=== PATIENT | female | born 1955 | race African-American/Black ===

== ENCOUNTER 2017-03-25 18:24 | Inpatient (IN) | payer MEDICARE, OTHER ==
[~2017-03-25] VITALS: Ht 154.9 cm; Wt 99.8 kg
--- NOTE | ~2017-03-25 | ST ---
Unit #: [id number] #: [id number] Patient: VAUGHN KIM [id number] [address] [place], [place] [address] [id number] I MR#: [id number] NAME: VAUGHN KIM : 1955 SEX: F STUDY DATE/TIME: 03/29/2017 UNIT: C2A ROOM: 225 STUDY DESCRIPTION: Stress test Attending Physician: Heron Ahmuada M.D. Primary Care Physician: Alverto HowePKailaRJose Rafael CARDIOLOGY REPORT PROCEDURES PERFORMED Stress test. REASON FOR TEST Pre-op cardiac clearance. PROCEDURE Baseline EKG shows normal sinus rhythm, rate of 90 beats per minute. Per protocol, 0.4 mg of Lexiscan was injected, followed by Cardiolite. During the infusion, the patient did complain of headache and shortness of breath but denied any complaints of chest pain. These symptoms resolved in the recovery period. There were no ST segment changes noted suggestive of ischemia. There was no ectopy. The patient's blood pressure did increase to as high as 202/102 during the infusion with last blood pressure running 188/85. Please correlate with nuclear images. Dictated by... Lo Hill.P.RJose Rafael for Josiane Woods M.D. LMW/db TD: 03/29/2017 10:28 JOB #: [id number] CARDIOLOGY REPORT Page 1 of 1 X Ana Espitia APRN CARDIOLOGY REPORT
--- NOTE | ~2017-03-25 | BMI ---
[facility] Nutrition Therapy DATE: 03/26/17 Patient: VAUGHN KIM Physician: KHADRA Address: [address] [facility] Room/Bed: [address] [place] [address], Zip: [place] [address] Admit Date: 03/26/17 Date of : [birth year] Height: 5 1 Weight: 220 99.79 HIGH BMI NOTE: DX: 62 Y.O. FEMALE ADMITTED FOR GANGRENE (R) 5TH TOE ANTHROPOMETRICS: 5'1", WT: 219# (100 KG), 41.4 DIET: CONSISTENT CARBOHYDRATE RECOMMENDATIONS: 1. RECOMMEND TO ADD HEALTHY HEART TO CURRENT DIET ORDER ABOVE TO PROMOTE GRADUAL WEIGHT LOSS TOWARDS HEALTHY BMI (19.0-25.0) OR +/-10% IBW RD WILL F/U PER PROTOCOL Respectfully, JOSE AGUILAR MS, RD, LD Food and Nutritional Services [facility] cc: client file
--- NOTE | ~2017-03-25 | CO ---
Unit #: [id number] #: [id number] Patient: VAUGHN DIALLO [id number] [address] [address] [id number] I MR#: [id number] NAME: VAUGHN DIALLO ROOM: 225 Age: 62 Sex: F Admission Date: 03/26/2017 : 1955 Attending Physician: Kike Brandt M.D. Primary Care Physician: Tanner Rodney A.P.R.N. Consultation Date: 03/27/2017 CONSULTATION REPORT CHIEF COMPLAINT Gangrene right fifth toe. HISTORY OF PRESENT ILLNESS Ms. Diallo is a 62-year-old female with a longstanding history of nearly 30 years of diabetes mellitus. She states that over the past two weeks she has developed necrotic changes over the fifth toe. She had seen her hog man who had performed some sort of local I and D and started her on clindamycin. Over the past week, she has had increasing pain in the fifth toe with progressive and chronic changes. She has now developed fever and chills at home with some night sweats. She presented to the emergency room for further evaluation. She was admitted with gangrene of the right fifth toe. She has received IV antibiotics. An Orthopedic consultation has been requested regarding further definitive management. PAST MEDICAL HISTORY 1. Diabetes mellitus. 2. Hypertension. 3. Hyperlipidemia. MEDICATIONS 1. NovoLog. 2. Metformin. 3. Losartan. 4. Lipitor. 5. Aldactone. 6. Hydralazine. 7. Norvasc. 8. Clonidine. 9. Glipizide. ALLERGIES No known drug allergies. FAMILY HISTORY Renal insufficiency, hypertension, and diabetes. SOCIAL HISTORY The patient lives with her son and grandson. She smokes one-half to one pack of cigarettes daily. She has no alcohol use. REVIEW OF SYSTEMS Ten systems are reviewed and negative except as noted in the HPI. Unit #: [id number] #: [id number] Patient: VAUGHN DIALLO PHYSICAL EXAMINATION GENERAL APPEARANCE: Obese female in no acute distress or discomfort. PSYCHIATRIC: Awake, alert, and oriented to person, place, time, and situation, with normal range of mood and affect. HEENT: Normocephalic and atraumatic cranium. Pupils equal, round, and reactive to light. CARDIAC: Regular rate and rhythm. PULMONARY: No increased work of breathing. Symmetric chest rise. ABDOMEN: Obese and nondistended. NEUROLOGIC: Decreased sensation with diabetic neuropathy in the feet and hands. VASCULAR: She has absent pedal pulses to palpation. Her feet are warm with intact capillary refill. LYMPHATICS: No lymphedema or palpable lymphadenopathy. SKIN: There is no overlying cellulitis or induration. She has gangrenous changes at the tip of the fifth toe, as well as a small ulcerated area status post an I and D around the fifth metatarsal head laterally. MUSCULOSKELETAL: She has painless range of motion of the right ankle. She has normal plantigrade foot. DIAGNOSTIC STUDIES LABORATORY: White blood cell count is 15.9 which is up from 15.4 on admission, hemoglobin is 11.6, and platelet count is 149,000. She has 85% neutrophils. Sedimentation rate is elevated at 45. CRP is less than 0.5. IMAGING: (1) Plain x-rays of the right foot are reviewed. These demonstrate no radiographic signs of osteomyelitis. No gas is seen in the soft tissues. (2) ABIs are reviewed of the bilateral lower extremities. These demonstrate ABIs of approximately 0.3 bilaterally. IMPRESSION A 62-year-old female with chronic diabetes mellitus and peripheral vascular disease, now with right foot dry gangrene and possible underlying osteomyelitis. PLAN Will obtain an MRI with and without contrast to evaluate for the presence or extent of osteomyelitis, and we will consult Vascular surgery for further evaluation. She will need an amputation of this toe at least at some point in the future. Her current blood flow is insufficient for an amputation at this level I suspect. Further disposition will be pending workup and evaluation by Vascular Surgery. Dictated by... Cory Jennings M.D. LARISSA/robby TD: 03/28/2017 14:11 JOB #: [id number] Unit #: [id number] #: [id number] Patient: VAUGHN DIALLO CONSULTATION REPORT Page 1 of 1 X Cory Jennings MD CONSULTATION REPORT
--- NOTE | ~2017-03-25 | TH ---
Unit #: [id number] #: [id number] Patient: VAUGHN KIM [id number] [address] [address] [id number] I MR#: [id number] NAME: VAUGHN KIM : 1955 SEX: F STUDY DATE/TIME: 03/29/2017 UNIT: C2A ROOM: 225 STUDY DESCRIPTION: Attending Physician: Heron Ahumada M.D. Primary Care Physician: Tanner Rodney A.P.R.N. CARDIOLOGY REPORT EXAM Lexiscan Cardiolite stress test, nuclear portion. PROCEDURE Using technetium 99m labeled Cardiolite, rest and stress SPECT images were obtained. Multiple SPECT images were obtained in various views including horizontal and vertical long axis and short axis views of the left ventricle. Images were obtained by gated SPECT method. The patient was administered 10.69 mCi of Cardiolite at rest. The patient was administered 33.7 mCi of Cardiolite after Lexiscan infusion was completed. On the stress images, there is normal perfusion noted. The rest images showed normal perfusion. Comparing rest and stress images, there is no stress-induced ischemia noted. The left ventricular ejection fraction is calculated to be 72%. There is no focal wall motion abnormality seen. CONCLUSION 1. No stress-induced ischemia noted. 2. The left ventricular ejection fraction is calculated to be 72%. 3. There is no focal wall motion abnormality. 4. Normal Lexiscan Cardiolite stress test. Dictated by... Ana Chris TD: 03/29/2017 16:56 JOB #: [id number] CARDIOLOGY REPORT Page 1 of 1 X Josiane Woods MD <ELECTRONICALLY SIGNED> 04/22/17 1524 CARDIOLOGY REPORT
--- NOTE | ~2017-03-25 | CO ---
Unit #: [id number] #: [id number] Patient: TAMEKA DIALLO [id number] [address] [place], [place] [address] [id number] I MR#: [id number] NAME: TAMEKA DIALLO ROOM: 225 Age: 62 Sex: F Admission Date: 03/26/2017 : 1955 Attending Physician: Heron Ahumada M.D. Primary Care Physician: Tanner Rodney A.P.R.N. Consultation Date: 03/27/2017 CONSULTATION REPORT REFERRING PROVIDERS 1. Narda Lane M.D. 2. Cory Jennings M.D. REASON FOR CONSULTATION Peripheral arterial disease, gangrene right fifth toe. HISTORY The patient is a 62-year-old female with significant diabetes, hypertension, hypercholesterolemia who was admitted to the hospital with worsening ischemic changes to the right fifth toe. She reports two to three weeks ago she had a toenail clipping and then stubbed her toe and has had persistent issues with her toe and it is now turning a darker black color. She had further procedure by her communication skills instructor, but it has not healed. Upon admission to the emergency room, she was found to have no fevers or chills but she had complained of it prior to her admission. She reports no drainage. She reports no smell from the wound. She has reported that over the last few years she has had increasing lots of discomfort with walking longer distances. She can walk roughly 25 feet before she begins to have pain in her thighs and hips as a cramping pain. It does not radiate to her back. It is an 8/10 in severity, made better by rest but made worse by continued walking. She reports no wounds prior to this. She reports no rest pain. She does sleep fitfully at times. She has been compliant with her medications for her diabetes and her hypercholesterolemia. She reports no chest pain. She reports no focal unilateral neurologic changes. PAST MEDICAL HISTORY 1. Diabetes mellitus. 2. Hypertension. 3. Hyperlipidemia. PAST SURGICAL HISTORY None. ALLERGIES No known drug allergies. HOME MEDICATIONS 1. NovoLog. 2. Metformin 1000 mg b.i.d. 3. Losartan 100 mg daily. 4. Lipitor 40 mg daily. 5. Aldactone 25 mg twice daily. Unit #: [id number] #: [id number] Patient: TAMEKA DIALLO 6. Hydralazine 50 mg twice daily. 7. Norvasc 10 mg daily. 8. Clonidine 0.1 mg nightly. 9. Glipizide 10 mg twice daily. FAMILY HISTORY Positive for hypertension and kidney disease. SOCIAL HISTORY She smokes at least a half pack to a pack per day. She has been smoking for 40 years. She does not use alcohol or other illicit medications. REVIEW OF SYSTEMS Per the HPI. The remainder of a 14-point review of systems is negative per questioning. PHYSICAL EXAMINATION VITAL SIGNS: Temperature is 99, pulse 87, BP 134/42, respirations 16. GENERAL: The patient is a well-developed individual appearing her stated age in no distress, answering questions appropriately. HEENT: Pupils equal and reactive to light and accommodation. Extraocular movements are intact. Mucous membranes are moist. No intraoral or intramucosal lesions or infections. NECK: Supple. No JVD. Faint carotid bruit bilateral. No JVD. Trachea is midline. Thyroid is benign without enlargement. HEART: S1, S2. Regular rate and rhythm. No murmurs. LUNGS: Clear to auscultation bilateral. Good air entry throughout. No wheezing or crackles. ABDOMEN: Soft, nontender, nondistended. Positive bowel sounds. No abdominal masses or hernias are noted. VASCULAR: Positive radial and brachial pulses bilaterally. Femoral, popliteal, and pedal pulses are nonpalpable bilateral. SKIN: There are gangrenous changes to the tip of the right fifth toe extending to the interphalangeal joints. There is cyanosis of the remainder of the toe more proximal. There is no streaking erythema to the foot or to the right leg. No other open wounds or ulcerations are noted. LYMPHATIC: No lymphadenopathy of the cervical or femoral chain. MUSCULOSKELETAL: No soft tissue masses or bony deformities. No limb length or limb circumference abnormalities bilaterally. PSYCHIATRIC: Alert and oriented x3. NEUROLOGIC: Cranial nerves II-XII are intact. A 5/5 strength lower extremities. Normal sensation in all extremities. DIAGNOSTIC STUDIES LABORATORY: Pertinent laboratories: Creatinine 0.7, BUN 9, sodium 140, potassium 4.1. White count 15.9, hemoglobin 11.6, hematocrit 35.2, platelets 496,000. INR 0.9. IMAGING: The patient had bilateral lower extremity FRANDY performed on March 26, 2017, reviewed by me personally, showing right FRANDY 0.31 and left of 0.35 consistent with severe arterial disease bilateral. IMPRESSION AND PLAN Ms. Tameka Diallo has severe arterial insufficiency of both lower extremities, gangrene of the right fifth toe. Ms. Diallo and her family in the room were told the findings of my evaluation and the review of her studies. She has severe arterial disease Unit #: [id number] #: [id number] Patient: TAMEKA DIALLO and as I cannot feel pulses in either leg, I recommended a CTA of the abdomen and pelvis with lower extremity runoff to evaluate for potential treatment options. If she does not have adequate input, she may require significant surgical bypass. She will continue on her antibiotics. She will continue on her hypercholesterolemia medications and control her sugars with insulin. She is recommended the use of antiplatelet agents including aspirin. We spoke over 10 minutes the need for smoking cessation including the risks of smoking and the benefits of stopping. She seems willing to stop smoking. We will continue to follow while she is in the hospital and we will await the results of the CAT scan. She was agreeable with the plan as discussed and had the remainder of her questions answered to her satisfaction. As she has had carotid bruits identified, we will obtain a carotid Doppler as well. Thank you for having us see Ms. Diallo. If you have any questions, do not hesitate to contact me. Dictated by... Dex Merrill M.D. ORALIA/sujatha TD: 03/29/2017 08:57 JOB #: [id number] CONSULTATION REPORT Page 1 of 1 X Dex Merrill MD X CONSULTATION REPORT
--- NOTE | ~2017-03-25 | CR127 ---
[facility] A Service of [facility] & [facility] RADIOLOGY TEXT RESULTS PATIENT: VAUGHN KIM LOCATION: C2A 225-01 : [birth year] UNIT #: [id number] AGE: [address]: RYLEE BAKER V SEX: F ORDER DR: [id number] [facility] [address] [place], [place] [address] [id number] I MR#: [id number] Acc #: [id number] NAME: VAUGHN KIM : 1955 SEX: F STUDY DATE/TIME: 03/25/2017 21:55 UNIT: A ROOM: 225 STUDY DESCRIPTION: CR Foot Complete Min 3 View Rt Attending Physician: Rylee Baker M.D. Ordering Physician: Gerry Valera M.D. Primary Care Physician: Génesis HoweRJose Rafael MEDICAL IMAGING REPORT This report is preliminary unless electronic signature is present EXAM Right foot 3 views 03/25/2017 HISTORY Lateral and medial right foot pain and swelling today status post fall. FINDINGS Three views of the right foot demonstrate no fracture. The bones are osteopenic. There is soft tissue swelling about the right foot. No foreign body is seen. 1 cm plantar calcaneal spur is noted. IMPRESSION Soft tissue swelling about the right foot. No evidence of fracture or radiopaque foreign body. Dictated by... Cory Friedman M.D. THIS IS AN ELECTRONICALLY VERIFIED REPORT Cory Friedman M.D. at 03/26/2017 4:04 PM NEGRO/belkys TD: 03/26/2017 12:50 JOB #: [id number] MEDICAL IMAGING REPORT Page 1 of 1 COPY
--- NOTE | ~2017-03-25 | EKG ---
PATIENT: VAUGHN KIM UNIT #: [id number] Ventricular Rate: 97 BPM Atrial Rate: 97 BPM P-R Interval: 186 ms QRS Duration: 88 ms Q-T Interval: 346 ms QTC Calculation(Bezet): 439 ms P [place]: 59 degrees Calculated R [place]: 54 degrees Calculated T [place]: 51 degrees Diagnosis Line: Normal sinus rhythm Diagnosis Line: Normal ECG Diagnosis Line: No previous ECGs available Diagnosis Line: Confirmed by JONATHAN MAYEN MD ([id number]) on 03/26/2017 Diagnosis Line: 5:18:37 PM INTERPRETING MD: FAHEEM MUÑOZ
--- NOTE | ~2017-03-25 | A ---
[facility] Nutrition Therapy DATE: 03/26/17 Patient: VAUGHN KIM Physician: KHADRA Address: [address] [place] [address] Room/Bed: [address] [place] [address], Zip: [place] [address] Admit Date: 03/26/17 Date of : [birth year] Height: 5 1 Weight: 220 99.79 NUTRITIONAL ASSESSMENT: REASON: 3 NUTRITION RISK PT RE: PRESSURE ULCER/NON-HEALING WOUND + 7# WEIGHT LOSS, ALSO HIGH BMI DOCUMENTATION PT IS 62 Y.O. FEMALE ADMITTED FOR GANRENE (R) 5TH TOE PMH: DM W/PERIPHERAL NEUROPATHY, HTN, HLD, PVD Anthropometrics: 5'1", WT: 219# (100 KG), BMI: 41.4 Labs: GLU: 127, NA+:134 Meds: NACL, ZOFRAN, NOVOLOG, LIPITOR I/O & Bowel function: 1645/103 Skin Integrity: (R) FOOT DM ULCER- (R) 5TH TOE GRANGRENE NOTED Assessment: CHART REVIEWED AND EVENTS NOTED. PT SEEN FOR 3 NUTRITION RISK PT RE: PRESSURE ULCER + WEIGHT LOSS. PT OFF OF FLOOR SMOKING AT TIME OF VISIT (RD ATTEMPTED 2X TO SEE PT). RD PROVIDED WRITTEN AND VERBAL CC DIET EDUCATION TO FAMILY. FAMILY REPORTS SOME WEIGHT LOSS BUT UNABLE TO KNOW AMOUNT AND TIME FRAME. FAMILY REPORTED NO DIET QUESTIONS AT THIS TIME. RD TO REMAIN AVAILABLE. Dx: EXCESSIVE CALORIC INTAKE R/T LIFESTYLE AEB BMI OF 41.4. 2. IMPAIRED GLYCEMIC CONTROL R/T PMH AEB DM ULCER NOTED. Intervention: 1. CONSISTENT CARBOHYRDRATE DIET 2, PROVIDED WRITTEN AND VERBAL HOME DIET EDUCATION Monitoring, Evaluation and Goals: 1. ORAL INTAKE; TOLERATE >50% OF MEALS 2. WEIGHTS; PROMOTE GRADUAL WEIGHT LOSS TOWARDS HEALTHY BMI 3. LABS; WNL: GLU 4 SKIN; PROMOTE SKIN HEALING Recommendations: 1. RECOMMEND TO ADD HEALTHY HEART TO CURRENT DIET ORDER ABOVE TO PROMOTE GRADUAL WEIGHT LOSS TOWARDS HEALTHY BMI (19.0-25.0) OR +/-10%IBW [facility] Nutrition Therapy DATE: 03/26/17 Patient: VAUGHN KIM Physician: KHADRA Address: [address] [place] [address] Room/Bed: [address] [place] [address], Zip: [place] [address] Admit Date: 03/26/17 Date of : [birth year] Height: 5 1 Weight: 220 99.79 2. CONSIDER ADDING MVI W/MINERAL DAILY TO AIDE IN SKIN HEALING 3. OBTAIN UPDATED A1c TO BETTER ASSESS DM MANAGEMENT Respectfully, Patric Teran RD, LD Food and Nutritional Services [facility] cc: client file
--- NOTE | ~2017-03-25 | US89 ---
[facility] A Service of [facility] & [facility] RADIOLOGY TEXT RESULTS PATIENT: VAUGHN KIM LOCATION: C2A 225-01 : 57 UNIT #: [id number] AGE: [address]: Heron Ahumada MD SEX: F ORDER DR: [id number] [facility] [address] [place], [place] [address] [id number] I MR#: [id number] Acc #: [id number] NAME: VAUGHN KIM : 1955 SEX: F STUDY DATE/TIME: 03/26/2017 17:30 UNIT: C2A ROOM: 225 STUDY DESCRIPTION: US Lower Ext Arterial Exam Attending Physician: Kike Brnadt M.D. Ordering Physician: Narda Lane M.D. Primary Care Physician: Tanner Rodney A.P.R.N. MEDICAL IMAGING REPORT This report is preliminary unless electronic signature is present EXAM Bilateral ankle to brachial indices. INDICATIONS Wound on the right toe has not been able to heal for 2 weeks. TECHNIQUE Sequential pressures were obtained through both lower extremities and pulse volume recordings were generated. FINDINGS This patient's ankle to brachial indices are markedly abnormal bilaterally, measuring 0.32 at the dorsalis pedis artery on the right and 0.3 at the posterior tibial artery on the right. Ankle to brachial index at the posterior tibial artery on the left is 0.31 and at the dorsalis pedis artery on the left at 0.35. Patient's xmq-wk-gofrfwos indices are also markedly abnormal at 0.29 on the left and could not be obtained on the right as the patient did not wish to have the toe touched. IMPRESSION 1. Markedly abnormal ankle to brachial indices noted bilaterally. This is near the range of limb threatening ischemia bilaterally. Given history of nonhealing ulcer on the right lower extremity, vascular surgery consultation is suggested. CT angiography of the abdomen and pelvis with bilateral lower extremity runoff may allow for additional characterization of the full extent of arterial disease. 2. Toe to brachial index on the left is also an area abnormal. It is unclear if this is small vessel disease, inflow disease or a combination of both. STS. [facility] A Service of [facility] & [facility] RADIOLOGY TEXT RESULTS PATIENT: VAUGHN KIM LOCATION: [place] [address] : [birth year] UNIT #: [id number] AGE: [address]: Heron Ahumada MD SEX: F ORDER DR: Dictated by... Lesley Watts M.D. THIS IS AN ELECTRONICALLY VERIFIED REPORT Lesley Watts M.D. at 04/07/2017 8:24 AM YISSEL/rio TD: 03/27/2017 21:08 JOB #: [id number] MEDICAL IMAGING REPORT Page 1 of 1 COPY
--- NOTE | ~2017-03-25 | MR59 ---
[facility] A Service of [facility] & [facility] RADIOLOGY TEXT RESULTS PATIENT: VAUGHN KIM LOCATION: C2A 225-01 : [birth year] UNIT #: [id number] AGE: [address]: Heron Ahumada MD SEX: F ORDER DR: [id number] [facility] [address] [place], [place] [address] [id number] I MR#: [id number] Acc #: [id number] NAME: VAUGHN KIM : 1955 SEX: F STUDY DATE/TIME: 03/27/2017 12:12 UNIT: C2A ROOM: 225 STUDY DESCRIPTION: MR Foot WWo Contrast Rt Attending Physician: Kike Brandt M.D. Ordering Physician: Cory Jennings M.D. Primary Care Physician: Tanner Rodney A.P.R.N. MRI CENTER REPORT This report is preliminary unless electronic signature is present. EXAM Right foot MRI without and with contrast, 03/27/2017 HISTORY 62-year-old female with right fifth toe pain for 2-1/2 weeks. History of at least two prior surgeries. Chronic history of diabetes and peripheral vascular disease. Order requests evaluation for osteomyelitis in the fifth toe. COMPARISON Right foot x-rays, 03/25/2017 TECHNIQUE Multiplanar, multisequence high field MR imaging of the right forefoot was performed both pre and post administration of IV gadolinium (20 mL MultiHance). FINDINGS There is mild soft tissue edema and skin thickening involving the fifth toe consistent with cellulitis. Small skin ulceration along the lateral aspect of the fifth toe. No drainable fluid collections to suggest abscess. There is mild edema, mild marrow replacement, and abnormal enhancement in the tuft of the fifth distal phalanx. Early osteomyelitis is not excluded. No other findings of osteomyelitis in the right forefoot. No joint effusions. Moderate subcutaneous soft tissue edema extending along the dorsum of the forefoot. Flexor and extensor tendons are unremarkable. Visualized musculature is unremarkable. IMPRESSION 1. Soft tissue ulceration with cellulitis of the fifth toe. No drainable fluid collections to suggest abscess. There is mild marrow edema, marrow replacement, and enhancement in the tuft of the fifth distal phalanx. Early osteomyelitis is not excluded. [facility]. [facility] A Service of [facility] RADIOLOGY TEXT RESULTS PATIENT: VAUGHN KIM LOCATION: C2A 225-01 : [birth year] UNIT #: [id number] AGE: [address]: Heron Ahumada MD SEX: F ORDER DR: 2. Moderate generalized subcutaneous soft tissue edema along the visualized dorsum of the forefoot. Dictated by... Ty Harden M.D. THIS IS AN ELECTRONICALLY VERIFIED REPORT Ty Harden M.D. at 03/29/2017 10:50 AM Zeeshan TD: 03/28/2017 17:16 JOB #: [id number] MRI CENTER REPORT Page 1 of 1 COPY
--- NOTE | ~2017-03-25 | US37 ---
[facility] A Service of [facility] & [facility] RADIOLOGY TEXT RESULTS PATIENT: VAUGHN KIM LOCATION: C2A 225-01 : 57 UNIT #: [id number] AGE: [address]: RYLEE BAKER V SEX: F ORDER DR: [id number] [facility] [address] [place], [place] [address] [id number] I MR#: [id number] Acc #: [id number] NAME: VAUGHN KIM : 1955 SEX: F STUDY DATE/TIME: 03/27/2017 19:50 UNIT: C2A ROOM: [facility] STUDY DESCRIPTION: US Carotid W/Doppler Bilateral Attending Physician: Rylee Baker M.D. Ordering Physician: Dex Merrill M.D. Primary Care Physician: Alverto HowePMirna MEDICAL IMAGING REPORT This report is preliminary unless electronic signature is present EXAM Bilateral carotid Doppler REASON FOR EXAM Carotid bruit. FINDINGS The right common internal and external carotid arteries are patent with diffuse mild to moderate heterogeneous atherosclerotic plaque throughout. Velocity of the common carotid artery is 88 cm/sec. Peak systolic velocity of the right proximal internal carotid artery is 162 cm/sec with an end-diastolic velocity of 36 cm/sec for an ICA/CCA ratio of 1.84. External carotid artery had a velocity of 137 cm/sec. The vertebral artery is visualized with antegrade flow. The left common internal and external carotid arteries are patent. There is diffuse mild to moderate atherosclerotic heterogeneous plaque throughout. Velocity of the common carotid artery is 76 cm/sec. Peak systolic velocity of the left proximal internal carotid artery is 61 cm/sec with an end-diastolic velocity of 15 cm/sec for an ICA/CCA ratio of 0.8. External carotid artery had a velocity of 102 cm/sec. The vertebral artery is visualized with antegrade flow. IMPRESSION 1. 50-69% stenosis of the right internal carotid artery and less than 50% stenosis of the left internal carotid artery. 2. No stenosis of the external carotid arteries. 3. Antegrade flow of the vertebral arteries. Dictated by... [facility] A Service of [facility] & [facility] RADIOLOGY TEXT RESULTS PATIENT: VAUGHN KIM LOCATION: [place] [address] : [birth year] UNIT #: [id number] AGE: [address]: OLIVIARYLEE V SEX: F ORDER DR: Dex Merrill M.D. THIS IS AN ELECTRONICALLY VERIFIED REPORT Dex Merrill M.D. at 03/29/2017 7:32 AM ORALIA/broderick TD: 03/29/2017 05:19 JOB #: [id number] MEDICAL IMAGING REPORT Page 1 of 1 COPY
--- NOTE | ~2017-03-25 | CT14 ---
[facility] A Service of [facility] RADIOLOGY TEXT RESULTS PATIENT: VAUGHN KIM LOCATION: A 225-01 : 57 UNIT #: [id number] AGE: [address]: RYLEE BAKER V SEX: F ORDER DR: [id number] [facility] [address] [place], [place] [address] [id number] I MR#: [id number] Acc #: [id number] NAME: VAUGHN KIM : 1955 SEX: F STUDY DATE/TIME: 03/27/2017 16:20 UNIT: A ROOM: 225 STUDY DESCRIPTION: CT Angio Abdomen and Pelvis Attending Physician: Rylee Baker M.D. Ordering Physician: Dex Merrill M.D. Primary Care Physician: Tanner Rodney A.P.R.N. MEDICAL IMAGING REPORT This report is preliminary unless electronic signature is present EXAM CT angiogram abdomen and pelvis and lower extremities with IV contrast HISTORY Right fifth toe pain for 2 weeks, with decreased pulses to toes. Peripheral vascular disease. FINDINGS IV contrast-enhanced CT angiogram of the abdomen and pelvis and lower extremities was performed with 3-D reconstructions. This CT exam was performed with one or more of the following radiation dose reduction techniques: automatic exposure control, adjustment of mA and/or kV according to patient size, and iterative reconstruction. CT ABDOMEN: There is moderate diffuse calcified atherosclerotic plaque in the abdominal aorta. Normal caliber abdominal aorta. Mild calcified plaque at the origins of the celiac and superior mesenteric arteries and bilateral renal arteries but no significant stenosis in these vessels. The inferior mesenteric artery is patent. The liver, gallbladder, spleen, pancreas, right adrenal gland and right kidney are unremarkable. Mild left adrenal hyperplasia. A 1.5 cm cyst in the mid to upper left kidney. No perinephric stranding. No bowel dilatation. No bowel wall thickening. No ascites. CT PELVIS: Short segment occlusion of the left common iliac artery over a length of approximately 2 cm. Moderately extensive diffuse calcified atherosclerotic plaque in the common iliac arteries bilaterally and in the proximal internal and external iliac arteries bilaterally. Reconstitution of the left distal common iliac artery. No significant stenosis in the internal or external iliac arteries bilaterally. The uterus and adnexa are unremarkable. Normal appendix. No free fluid. [facility] A Service of [facility] RADIOLOGY TEXT RESULTS PATIENT: VAUGHN KIM LOCATION: [facility] 225-01 : 57 UNIT #: [id number] AGE: [address]: RYLEE BAKER V SEX: F ORDER DR: CT ANGIOGRAM LOWER EXTREMITIES: [id number] atherosclerotic plaque in the common femoral arteries bilaterally and in the proximal deep femoral arteries bilaterally. Moderately extensive diffuse calcified atherosclerotic plaque throughout the superficial femoral arteries bilaterally and mild to minimal plaque in the popliteal arteries bilaterally. There is minimal calcified atherosclerotic plaque in the proximal anterior tibial arteries and in the tibial peroneal trunk bilaterally. There is three-vessel runoff in the lower legs to the ankles bilaterally. The dorsalis pedis artery is patent to the distal foot bilaterally. Moderate soft tissue swelling over the dorsum of the foot bilaterally. IMPRESSION 1. Short-segment occlusion of the proximal left common iliac artery over a length of 2 cm with reconstitution of the distal left common iliac artery. 2. No significant stenosis in the celiac or superior mesenteric arteries or renal arteries. 3. Moderate to moderately extensive diffuse atherosclerotic plaque in the common iliac and proximal internal and external iliac arteries bilaterally and in the common femoral and superficial femoral arteries bilaterally with [id number]-[id number] multifocal stenoses in the superficial femoral arteries bilaterally. 4. There is three-vessel runoff in the lower legs bilaterally down to the level of the ankles. The dorsalis pedis arteries are patent to the distal feet bilaterally. Dictated by... Stevie Zelaya M.D. THIS IS AN ELECTRONICALLY VERIFIED REPORT Stevie Zelaya M.D. at 03/29/2017 4:45 AM PREETHI/broderick TD: 03/28/2017 23:07 JOB #: [id number] MEDICAL IMAGING REPORT Page 1 of 1 COPY
--- NOTE | ~2017-03-25 | CO ---
Unit #: [id number] #: [id number] Patient: TAMEKA DIALLO [id number] [address] [place], [place] [address] [id number] I MR#: [id number] NAME: TAMEKA DIALLO ROOM: 225 Age: 62 Sex: F Admission Date: 03/26/2017 : 1955 Attending Physician: Heron Ahumada M.D. Primary Care Physician: Tanner Rodney A.P.R.N. Consultation Date: 03/28/2017 CONSULTATION REPORT REASON FOR CONSULTATION A 62-year-old female, requiring cardiovascular clearance for lower extremity vascular surgery. CLINICAL SUMMARY Ms. Tameka Diallo is a very nice 62-year-old lady, who has all major risk factors for atherosclerotic disease. She has been diabetic since age 31, hypertensive, hyperlipidemic, obese, has a strong family history of premature coronary artery disease, and she continues to smoke currently. The patient had no prior history of any cardiac issues, but really has not undergone any evaluation. She denies any current or recent chest, neck, arm, jaw, or interscapular discomfort suggestive of angina pectoris. She has not had any orthopnea, PND, or lower extremity edema. She denies any rapid palpitations, irregularities of the heart rhythm, history of atrial fibrillation or thromboembolic events. The patient, however, has been extremely sedentary due to secondary effects of lower extremity peripheral vascular disease. She is now admitted with gangrene of her right fifth toe and has undergone evaluation, for which she may need embolectomy/vascular bypass surgery. Because of all her major risk factors, we were asked to see her to screen the patient for significant underlying cardiac disease before undergoing anesthesia and vascular surgery. The patient states that she had what sounds like a lower extremity embolectomy at [facility] approximately 6 to 7 months ago. She states that she did not undergo any type of cardiovascular workup prior to that procedure being done. It has been over 10 to 12 years since she has had any type of stress test. She has never been told she had any blockages in her coronary arteries. ALLERGIES No known drug allergies. FAMILY HISTORY The patient's daughter who at age 30 following her second coronary bypass operation. The daughter was juvenile diabetic. SOCIAL HISTORY The patient has been smoking since age 14. She for many years consumed 1-1/2 pack per day. She states she has drastically cut down smoking since the onset of her lower extremity vascular disease with one pack perhaps lasting 3 to 4 weeks. There is no history of alcohol or any substance Unit #: [id number] #: [id number] Patient: TAMEKA DIALLO. REVIEW OF SYSTEMS She denies any TIA or stroke symptoms, there have been no visual problems or episode of amaurosis fugax. She denies any severe headaches or dizziness or confusion. There is no history of recent pneumonia or any cough or sputum production. She denies any melena, hematochezia, hematemesis, hemoptysis, hematuria, or epistaxis. The patient is unaware of any peptic ulcer disease. She has not had any unintentional weight loss or gain. She does not have fever or chills. She has been very sedentary due to ongoing pain in her foot. 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 She had undergone some debridement per head neck surgeon. A 12-point review of systems is otherwise negative. PHYSICAL EXAMINATION GENERAL: The patient is an alert, cooperative and talkative 62-year-old lady, who is sitting up in a chair at bedside in no acute distress. She states that pain in her right foot is so constant, is "background now." VITAL SIGNS: Temperature 98.4 degrees Fahrenheit, oxygen saturation 98% on room air, blood pressure 112/45 mmHg. Height 5 feet 1 inch, weight 219 pounds with a body mass index of 41. SHEENT: Shows good skin turgor. She is not icteric. Pupils are equal, round, reactive to light. Oral mucosa is moist. NECK: Supple without palpable thyroid or lymphadenopathy. CHEST: There are diffusely decreased breath sounds bilaterally, but no active wheezes, rales, or rhonchi. CARDIOVASCULAR: S1 is normal. The pulmonic component of the second heart sound is not increased. There is a loud S4 at the apex. There is a 2/6 systolic murmur at the left lower sternal border that is loudest at the left second intercostal space. There appeared to be a left supraclavicular bruit. There is no diastolic murmur. There is no S3. Carotid upstrokes were brisk bilaterally. There is a low-pitched, fairly loud bruit over the right carotid. There is a soft high-pitched bruit over the left carotid. ABDOMEN: Obese with normal bowel sounds. There is no tenderness on palpation. Difficult to assess accurately for hepatosplenomegaly due to the morbid obesity. EXTREMITIES: The right foot is bandaged in gauze without any obvious drainage. She reportedly has gangrene of the right fifth digit. There is 1+ edema. No skin breakdown noted elsewhere. NEUROLOGIC: She is alert and oriented x3. There are no obvious gross motor deficits or lateralizing defects. DIAGNOSTIC STUDIES CARDIOVASCULAR STUDIES: EKG on 03/26/2017 at 7:03 a.m., normal sinus rhythm at 97 beats per minute. Normal EKG. LABORATORY RESULTS: Other pertinent laboratory on 03/28/2017; BUN 7, creatinine 0.7, serum potassium 3.5, GFR 108.4. Total bilirubin 0.2, AST 21. White blood cell count 15,900 with 85% segs, hemoglobin is 11.6 with platelet count 496,000. ASSESSMENT 1. Severe right lower extremity peripheral vascular disease. a. Status post what sounds like embolectomy of the right lower extremity at [facility] approximately 6 to 7 months ago. Unit #: [id number] #: [id number] Patient: TAMEKA DIALLO. Currently plan for possible right lower extremity revascularization with possible bypass. The patient may still face amputation of gangrenous left fifth digit. 2. Asymptomatic bilateral carotid bruits. a. Reportedly carotid ultrasounds are pending. 3. Left subclavian bruit, rule out upper extremity arterial obstructive disease. 4. Greater than 30 years type 2 diabetes mellitus. 5. Hypertensive cardiovascular disease. 6. Hyperlipidemia. 7. Morbid obesity with body mass index 41. 8. Very strong family history of premature coronary artery disease with daughter having after second coronary bypass operation at age 32. 9. Nicotine addiction with ongoing tobacco abuse. 10. Chronic obstructive pulmonary disease. RECOMMENDATIONS The patient certainly could be having painless ischemia related to her diabetes and her very sedentary lifestyle. She is certainly at high risk for atherosclerotic coronary artery disease. We will obtain a pharmacologic stress Cardiolite study and also evaluate any obvious structural heart disease with a 2D Doppler echocardiogram. Further recommendations will follow the results of these studies tomorrow morning. Dictated by... John Gonzalez M.D. CP/danyell TD: 03/30/2017 05:06 JOB #: [id number] CC: Génesis HoweRJose Rafael CONSULTATION REPORT Page 1 of 1 X John Gonzalez MD CONSULTATION REPORT
--- NOTE | ~2017-03-25 | DS ---
Unit #: [id number] #: [id number] Patient: VAUGHN KIM [id number] [address] [address] [id number] I MR#: [id number] NAME: VAUGHN KIM ROOM: 225 Age: 62 Sex: F Admission Date: 03/26/2017 : 1955 Discharge Date: 03/30/2017 Attending Physician: Heron Ahumada M.D. Primary Care Physician: Tanner Rodney A.P.R.N. DISCHARGE SUMMARY ADMISSION DIAGNOSES 1. Right fifth toe gangrene plus or minus cellulitis. 2. Adult onset diabetes mellitus. 3. Essential hypertension. 4. Hyperlipidemia. 5. Tobacco abuse. DISCHARGE DIAGNOSES 1. Right fifth toe gangrene. 2. Type 2 diabetes insulin dependent. 3. Hypokalemia. 4. Anemia. 5. Tobacco use. 6. Severe peripheral arterial disease. 7. Hypertension. 8. Hyperlipidemia. 9. Questionable diarrhea, resolved. CONSULTANTS 1. Dr. Cory Jennings, Orthopaedic Surgery. 2. Dr. Dex Merrill, Vascular Surgery. 3. Dr. John Gonzalez, Cardiology. PROCEDURES None. DIAGNOSTIC STUDIES LABORATORY: WBC 10.4, hemoglobin 10.0, hematocrit 29.6, platelets 419,000. Sodium 144, potassium 3.1 prior to repletion, chloride 109, CO2 26, glucose 157, BUN 7, creatinine 0.6, calcium 9.1, magnesium 1.9. Hemoglobin A1C 6.2. Blood cultures, preliminary, x2, no growth. IMAGIN03/27/17, bilateral carotid Doppler. Impression: 50 to 69% stenosis of the right internal carotid artery and less than 50% stenosis of the left internal carotid artery. No stenosis of the external carotid artery. Antegrade flow of vertebral arteries. CTA of the abdomen and pelvis and lower extremities with IV contrast. Impression: Short-segment occlusion of the proximal left common iliac artery over a length of 2 cm with reconstitution of the distal left common iliac artery. No significant stenosis in the celiac or superior mesenteric arteries or renal arteries. Moderate to moderately extensive diffuse atherosclerotic plaque in the common iliac and proximal internal and external iliac arteries bilaterally and in the common femoral and Unit #: [id number] #: [id number] Patient: VAUGHN KIM superficial femoral arteries bilaterally with mild to moderate multifocal stenoses in the superficial femoral arteries bilaterally. There is three vessel runoff in the lower legs bilaterally down to the level of the ankles. The dorsalis pedis arteries are patent to the distal feet bilaterally. 03/27/17, impression: Soft tissue ulceration with cellulitis of the fifth toe. No drainable fluid collections to suggest abscess. There is mild marrow edema, marrow replacement and enhancement in the tuft of the fifth distal phalanx. Early osteomyelitis is not excluded. Moderate generalized subcu soft tissue edema along the visualized dorsum of the forefoot. 03/26/17, bilateral ankle-brachial indices. Impression: Markedly abnormal ankle-brachial indices noted bilaterally. This is near the range of limb threatening ischemia bilaterally given history of nonhealing ulcer on the right lower extremity. Vascular Surgery consultation is suggested. CT angiography of the abdomen and pelvis with bilateral lower extremity runoff may allow for additional characterization of the full extent of arterial disease. Total brachial index on the left is also an area abnormal. It is unclear if this is small vessel disease, inflow disease or combination of both. 03/25/17, right foot, three views. Impression: Soft tissue swelling about the right foot. No evidence of fracture or radiopaque foreign body. CARDIOLOGY: Lexiscan Cardiolite stress test: Nuclear images per Cardiology (1) note, nuclear images revealed no ischemia. 2-D echo, on 09/29/16, revealed an EF of 60% with mild LVH and mild mitral regurgitation. Patient okay to undergo surgery at acceptable risk. CONDITION Stable. DISPOSITION Home with daughter who is available to assist her there if needed. DISCHARGE MEDICATIONS 1. Nicotine transdermal 14 mg transdermally every morning over the counter. 2. Amlodipine besylate 10 mg p.o. daily. 3. Lipitor 40 mg p.o. daily. 4. Catapres 0.1 mg p.o. b.i.d. 5. Hydralazine 50 mg p.o. t.i.d. 6. Cozaar 100 mg p.o. daily. 7. Patient is to resume home insulin orders. 8. Florastor 250 mg p.o. b.i.d. over the counter. 9. Percocet 5/325 mg one p.o. q.4 hours p.r.n. pain, #30, with no refills. Prescription written by Dr. Ahumada. 10. Spironolactone 25 mg p.o. every morning. 11. Glucotrol 10 mg p.o. b.i.d. with meals. 12. Bactrim DS one p.o. b.i.d. x10 days, #20, no refills. 13. Metformin HCL 1,000 mg tab p.o. b.i.d. Note, this patient must wait at least 48 hours after she received the last dose of IV contrast media to resume this medication. DISCHARGE INSTRUCTIONS 1. The patient will be discharged home. Unit #: [id number] #: [id number] Patient: VAUGHN KIM 2. Mid line is to be discontinued prior to discharge. 3. The patient is to call and follow up with Dr. Merrill, the vascular surgeon, to prepare for and to schedule the aortofemoral bypass surgery as planned by the vascular surgeon to take place at [facility] sometime next week. 4. The patient is to call and schedule a followup appointment with Dr. Jennings in two weeks. HOSPITAL COURSE The patient is a 62-year-old -Congol[place] female with history of insulin-dependent diabetes mellitus, hypertension, hyperlipidemia, who presented to [facility] emergency department on the date of admission with complaint of increasing pain in the right fifth toe as well as episodes of fever, sweats, chills, nausea and diarrhea. She is noted to have gangrenous changes of the right fifth toe and she received a liter of normal saline, IV vancomycin 2 g and was admitted to the hospital for further evaluation and management of her condition. Please refer to the history and physical report for complete details. The patient was evaluated by Dr. Jennings of the Orthopaedic Service. Per review of his note, his impression was right foot dry gangrene with possible underlying osteomyelitis. Vascular Surgery was consulted for further evaluation and management, although he indicated that the patient will need an amputation of the toe at some point in the future. Upon evaluation by Dr. Merrill, his impression and plan per review of his note was that the patient has severe arterial insufficiency of both lower extremities and gangrene of the right fifth toe. The above referenced diagnostic studies were ordered with results as dictated above. The patient was counseled on the need for smoking cessation. Carotid Dopplers were performed given the presence of carotid bruits on physical examination. Results of this study are dictated above as well. Based on the patient's vascular workup, Dr. Merrill ordered cardiology preoperative clearance. The patient underwent nuclear stress test with results as dictated above. The patient was ultimately cleared for surgery. The patient was evaluated today by Dr. Herrmann. The plan at this time is for her to have surgery, aortobifemoral bypass for revascularization at some point next week at [facility]. The patient has been cleared for discharge home. She is to follow up with Vascular Surgery as dictated under discharge instructions above. I have consulted with Dr. Heron Ahumada regarding discharge antibiotics. The patient has continued on IV vancomycin and Zosyn since admission. These antibiotics will be discontinued today and the patient will be discharged home on Bactrim DS one p.o. b.i.d. for 10 days. The patient's blood sugar was elevated and she required adjustment of her insulin but, at this point, will be discharged home on her home regimen. Hemoglobin A1C was 6.2. The patient is to continue Lipitor. The patient has been given a prescription for hydralazine as this medication was added and antihypertensive medications were adjusted. The patient has an antalgic gait but is able to bear some weight on the right lower extremity. However, wheelchair has been ordered to assist with her mobility and to assist with right lower extremity pain control after discharge. The patient will need to follow up with her primary care physician in five to seven days for follow up on general medical comorbidities. Dictated by... Sofia Jenikns A.P.R.N. for Unit #: [id number] #: [id number] Patient: VAUGHN KIM M.D. RLC/melania TD: 03/31/2017 13:03 JOB #: [id number] CC: Ana Looney M.D. Charles R. Prince, M.D. DISCHARGE SUMMARY Page 1 of 1 X Gregory,Sofia L [employer] X DISCHARGE SUMMARY
--- NOTE | ~2017-03-25 | HP ---
Unit #: [id number] #: [id number] Patient: VAUGHN KIM [id number] [address] [place], [place] [address] [id number] MR#: [id number] NAME: VAUGHN KIM ROOM: 225 Age: 62 Sex: F Admission Date: 03/26/2017 : 1955 Attending Physician: Narda Lane M.D. Primary Care Physician: Tanner Rodney A.P.R.N. HISTORY AND PHYSICAL CHIEF COMPLAINT Gangrene right fifth toe. HISTORY This pleasant 62-year-old female with IDDM, hypertension, hyperlipidemia, is admitted for gangrene of the right fifth toe. The patient states she developed increasing pain in the right fifth toe two and a half weeks ago and saw a armored car guard and driver who performed an I and D. the patient currently is receiving clindamycin. Over the past week, notes increasing pain in the right fifth toe. More recently, developed fever, sweats and chills along with nausea. She presented to this emergency department late last evening. On examination, she has gangrenous changes of the right fifth toe. She was bolused with a liter of saline, given Zofran, Lortab, and 2 g of vancomycin. X-rays only shows soft tissue swelling. C reactive protein is normal. PAST MEDICAL HISTORY 1. 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 2. Essential hypertension. 3. Hyperlipidemia. ALLERGIES No known drug allergies. HOME MEDICATIONS 1. NovoLog mix 75/25 60 units subcu b.i.d. 2. Metformin 1000 mg b.i.d. 3. Losartan 100 mg daily. 4. Lipitor 40 mg daily. 5. Aldactone 25 mg b.i.d. 6. Hydralazine 50 mg b.i.d. 7. Norvasc 10 mg daily. 8. Clonidine 0.1 mg q. h.s. 9. Glipizide 10 mg b.i.d. FAMILY HISTORY Kidney disease and hypertension. SOCIAL HISTORY The patient lives with her son and grandson. She smokes between one half to one pack per day of tobacco, does not drink alcohol. REVIEW OF SYSTEMS Unit #: [id number] #: [id number] Patient: VAUGHN KIM Notable for pain in the right fifth toe, hypertension, hyperlipidemia, AODM, neuropathy, tobacco use, fevers, sweats, chills, nausea. All other systems were reviewed and otherwise negative. PHYSICAL GENERAL: Pleasant, obese 62-year-old female, currently in no acute distress. VITAL SIGNS: Temperature 98.3, pulse 102, respirations 16, blood pressure 149/88. O2 saturation is 100% on room air. HEENT: Eyes PERRLA. Extraocular muscles are intact. Pharynx is benign. Edentulous. NECK: Supple without adenopathy or thyromegaly. CHEST: Clear. CARDIAC: Normal S1 and S2 without murmur. ABDOMEN: Bowel sounds are present. No hepatosplenomegaly, tenderness or masses. EXTREMITIES: Minimal edema. Pedal pulses are markedly diminished. There is gangrenous changes of the right fifth toe. NEUROLOGIC EXAM: The patient is awake, alert, oriented. Cranial nerves are intact. Equal strength throughout. DIAGNOSTIC STUDIES LABORATORY: Hematocrit 37.5, white blood count 15.4, MCV is 99.7, platelet count is 527. SMA-7 - glucose 127, CO2 is 16, C-reactive protein is normal. IMAGING: X-ray of the right foot shows soft tissue swelling. ASSESSMENT 1. Right fifth toe gangrene plus/minus cellulitis. 2. AODM. 3. Essential hypertension. 4. Hyperlipidemia. 5. Tobacco abuse. PLANS 1. Antibiotics. 2. Check arterial Dopplers. 3. IV fluids and supportive treatment. 4. DVT prophylaxis. 5. Obtain EKG. 6. Smoking cessation counseling. 7. Podiatry consultation. 8. Check B12 level given elevated MCV. Dictated by Narda Lane M.D. AML/df TD: 03/26/2017 05:29 JOB #: [id number] Unit #: [id number] #: [id number] Patient: VAUGHN KIM HISTORY AND PHYSICAL Page [address] MD HISTORY AND PHYSICAL
[2017-03-25] MEDS ORDERED: METFORMIN PO (21:26)
[2017-03-25] MEDS ORDERED: NOVOLOG100 U/ML (21:26)
[2017-03-25] MEDS ORDERED: LOSARTAN POTAS100 MG PO (21:27)
[2017-03-25] MEDS ORDERED: LIPITOR40 MG PO (21:27)
[2017-03-25] MEDS ORDERED: ALDACTONE25 MG PO (21:27)
[2017-03-25] MEDS ORDERED: HYDRALAZINE HCL50 MG PO (21:28)
[2017-03-25] MEDS ORDERED: AMLODIPINE BESY10 MG PO (21:28)
[2017-03-25] MEDS ORDERED: GLIPIZIDE10 MG PO (21:29)
[2017-03-25] MEDS ORDERED: CATAPRES0.1 MG PO (21:29)
[2017-03-25 22:38] LABS: BASOPHIL# 0.1 X10e3 (0-0.3); BASOPHIL% 0.5 % (0-2.5); BUN/CREATININE RATIO 20.9; CALCIUM SERUM 9.9 mg/dL (8.4-10.2); CREATININE SERUM 1.1 mg/dL (0.6-1.4); EOSINOPHIL% 0.2 % (0.0-7.0); GLOM FILT RATE Estimated 62.8 mL/min (>60); HEMATOCRIT 37.5 % (35.0-45.0); HEMOGLOBIN 12.3 gm/dL (12.0-16.0); LYMPHOCYTE% 6.8 % (17.0-45.0); MEAN CELL VOLUME 99.7 FL (83-96); MEAN CORPUSCULAR HEMOGLOBIN 32.6 PG (28-34); MEAN CORPUSCULAR HGB CONC 32.7 g/dL (30-36); MONOCYTE# 0.8 X10e3 (0-1.0); MONOCYTE% 4.9 % (3.0-12.0); NEUTROPHIL# 13.5 X10e3 (1.5-7.1); NEUTROPHIL% 87.6 % (40-75); PLATELET COUNT 527 X10e3 (140-420); POTASSIUM 4.3 mmol/L (3.5-5.1); RED BLOOD COUNT 3.76 X10e (3.90-5.30); RED CELL DISTRIBUTION WIDTH 14.8 % (11.0-15.5); WHITE BLOOD COUNT 15.4 X10e3 (4.0-10.5)
[2017-03-25 22:39] LABS: DIFF IND YES
[2017-03-25 22:52] LABS: ANISOCYTOSIS SL; PLATELET ESTIMATE INCREASED (NORMAL)
[2017-03-26 12:34] LABS: BASOPHIL# 0.1 X10e3 (0-0.3); BASOPHIL% 0.7 % (0-2.5); DIFF IND NO; EOSINOPHIL# 0.2 X10e3 (0-0.7); EOSINOPHIL% 1.2 % (0.0-7.0); HEMATOCRIT 35.2 % (35.0-45.0); HEMOGLOBIN 11.6 gm/dL (12.0-16.0); LYMPHOCYTE# 1.1 X10e3 (1.0-3.5); LYMPHOCYTE% 6.7 % (17.0-45.0); MEAN CELL VOLUME 99.3 FL (83-96); MEAN CORPUSCULAR HEMOGLOBIN 32.8 PG (28-34); MEAN PLATELET VOLUME 6.9 FL (6.5-11.5); MONOCYTE# 0.9 X10e3 (0-1.0); MONOCYTE% 5.9 % (3.0-12.0); NEUTROPHIL# 13.6 X10e3 (1.5-7.1); NEUTROPHIL% 85.5 % (40-75); PLATELET COUNT 496 X10e3 (140-420); RED BLOOD COUNT 3.55 X10e (3.90-5.30); RED CELL DISTRIBUTION WIDTH 14.8 % (11.0-15.5); WHITE BLOOD COUNT 15.9 X10e3 (4.0-10.5)
[2017-03-26 12:59] LABS: ALBUMIN SERUM 3.8 g/dL (3.5-5.0); BILIRUBIN,TOTAL 0.2 mg/dL (0.2-2.0); BUN/CREATININE RATIO 17.5; CREATININE SERUM 0.8 mg/dL (0.6-1.4); GLOM FILT RATE Estimated 92.3 mL/min (>60); POTASSIUM 3.7 mmol/L (3.5-5.1); PROTEIN TOTAL SERUM 7.4 g/dL (6.0-8.3)
[2017-03-26 14:31] LABS: INR 0.9; PROTHROMBIN TIME (PATIENT) 10.1 SECONDS (10.0-11.7)
[2017-03-27 07:09] LABS: BUN/CREATININE RATIO 12.85; CALCIUM SERUM 9.1 mg/dL (8.4-10.2); CREATININE SERUM 0.7 mg/dL (0.6-1.4); GLOM FILT RATE Estimated 108.4 mL/min (>60); POTASSIUM 4.1 mmol/L (3.5-5.1)
[2017-03-28 06:55] LABS: CREATININE SERUM 0.7 mg/dL (0.6-1.4); GLOM FILT RATE Estimated 108.4 mL/min (>60); POTASSIUM 3.5 mmol/L (3.5-5.1)
[2017-03-29 07:41] LABS: CALCIUM SERUM 9.2 mg/dL (8.4-10.2); CREATININE SERUM 0.8 mg/dL (0.6-1.4); GLOM FILT RATE Estimated 92.3 mL/min (>60); MAGNESIUM 1.9 mg/dL (1.6-3.0); POTASSIUM 3.8 mmol/L (3.5-5.1)
[2017-03-30 06:12] LABS: BASOPHIL# 0.1 X10e3 (0-0.3); BASOPHIL% 0.5 % (0-2.5); EOSINOPHIL# 0.5 X10e3 (0-0.7); EOSINOPHIL% 4.9 % (0.0-7.0); HEMATOCRIT 29.6 % (35.0-45.0); LYMPHOCYTE# 1.9 X10e3 (1.0-3.5); LYMPHOCYTE% 18.5 % (17.0-45.0); MEAN CELL VOLUME 98.4 FL (83-96); MEAN CORPUSCULAR HEMOGLOBIN 33.3 PG (28-34); MEAN CORPUSCULAR HGB CONC 33.9 g/dL (30-36); MEAN PLATELET VOLUME 6.5 FL (6.5-11.5); MONOCYTE# 0.6 X10e3 (0-1.0); MONOCYTE% 6.2 % (3.0-12.0); NEUTROPHIL# 7.3 X10e3 (1.5-7.1); NEUTROPHIL% 69.9 % (40-75); PLATELET COUNT 419 X10e3 (140-420); RED BLOOD COUNT 3.01 X10e (3.90-5.30); RED CELL DISTRIBUTION WIDTH 14.9 % (11.0-15.5); WHITE BLOOD COUNT 10.4 X10e3 (4.0-10.5)
[2017-03-30 06:13] LABS: DIFF IND NO
[2017-03-30 07:02] LABS: BUN/CREATININE RATIO 11.66; CALCIUM SERUM 9.1 mg/dL (8.4-10.2); CREATININE SERUM 0.6 mg/dL (0.6-1.4); MAGNESIUM 1.9 mg/dL (1.6-3.0); POTASSIUM 3.1 mmol/L (3.5-5.1)
[2017-03-30] MEDS ORDERED: NICOTINE TRANSD14 MG TOP (16:58)
[2017-03-30] MEDS ORDERED: DIGESTIVE PROB250 MG PO (17:00)
[2017-03-30] MEDS ORDERED: PERCOCET5/325 PO (17:01)
[2017-03-30] MEDS ORDERED: BACTRIM DS TAB1 EACH PO (17:02)
== END 2017-03-30 17:46 | disposition home health service (06) | DRG 300 ==
LOC: CED 18:24 → CEDOF 03-26 01:00 → C2A 03-26 01:00 → CEDOF 03-26 01:05 → CED 03-26 01:05 → C2A 03-26 02:16 → CEDOF 03-26 02:16 → C2A 03-26 02:16
PROVIDERS: Emergency Medicine; Internal Medicine; Internal Medicine Cardiovascular Disease
PROC: B420YZZ Computerized Tomography (CT Scan) of Abdominal Aorta using Other Contrast (ICD-10-PCS; 2017-03-27)
PROC: B42CYZZ Computerized Tomography (CT Scan) of Pelvic Arteries using Other Contrast (ICD-10-PCS; 2017-03-27)
PROC: 05H333Z Insertion of Infusion Device into Right Innominate Vein, Percutaneous Approach (ICD-10-PCS; principal; 2017-03-28)
PROC: B54MZZA Ultrasonography of Right Upper Extremity Veins, Guidance (ICD-10-PCS; 2017-03-28)
DX: E11.52 Type 2 diabetes mellitus with diabetic peripheral angiopathy with gangrene (principal); E87.2 Acidosis; E87.0 Hyperosmolality and hypernatremia; Z68.41 Body mass index [BMI] 40.0-44.9, adult; Z79.4 Long term (current) use of insulin; E11.621 Type 2 diabetes mellitus with foot ulcer; E11.65 Type 2 diabetes mellitus with hyperglycemia; I10 Essential (primary) hypertension; E78.5 Hyperlipidemia, unspecified; E66.01 Morbid (severe) obesity due to excess calories; Z82.49 Family history of ischemic heart disease and other diseases of the circulatory system; Z83.3 Family history of diabetes mellitus; F17.210 Nicotine dependence, cigarettes, uncomplicated; R09.89 Other specified symptoms and signs involving the circulatory and respiratory systems; J44.9 Chronic obstructive pulmonary disease, unspecified; E78.00 Pure hypercholesterolemia, unspecified; E87.6 Hypokalemia; D64.9 Anemia, unspecified
CPT/HCPCS: 36415; 73630; 73706; 73720; 74174; 78452; 80048; 80053; 80061; 80202; 82607; 82947; 83036; 83605; 83735; 85025; 85610; 85652; 86140; 87040; 93005; 93017; 93306; 93880; 93922; 96361; 96374; 99285; 99406; A9500; A9577; J1650; J1815; J2405; J2543; J2785; J3370; Q9967